=== PATIENT | male | born 1980 | race African-American/Black ===

== ENCOUNTER 2018-08-10 07:50 | Emergency (ER) | payer SELFPAY ==
[~2018-08-10] VITALS: Ht 175.3 cm; Wt 85.7 kg
[2018-08-10] MEDS ORDERED: BACTRIM DOUBLE S1 E1 ORAL (07:59)
[2018-08-10] MEDS ORDERED: NEURONTIN300 MG ORAL (07:59)
[2018-08-10] MEDS ORDERED: NORVASC10 MG ORAL (07:59)
--- NOTE | 2018-08-10 08:01 | NUR ---
ED Nurse Note: patient walked in from home c/o left eye swelling, appears to be sty, started last Thursday. He went to see a doctor for this and taking Bactrim for three days but with no improvement.
[2018-08-10 08:12] VITALS: BP 130/89
[2018-08-10] MEDS ORDERED: ERYTHROMYCIN3.5 GM LEFT EYE (08:46)
[2018-08-10] MEDS ORDERED: CEPHALEXIN500 MG ORAL (08:46)
[2018-08-10 08:52] VITALS: BP 130/89
--- NOTE | 2018-08-10 08:53 | NUR ---
ED Nurse Note: pt was cleared for discharge by ERMD, discharge instrcution/paper/prescription explained and patient verbalized understanding. ID band removed. pt aox4. pt able to walk with steady gait. pt left the ed with all belongings.
--- NOTE | 2018-08-10 15:49 | Emergency Room Report ---
History of Present Illness General Chief Complaint: Skin Rash/Abscess Source: Patient Present Illness HPI Patient presents emergency department today complaining of a sty on the left eye. Patient states that he was diagnosed with a sty couple days ago. He has been taking Bactrim orally. However he was not given any topical antibiotics. He denies any fever chest pain shortness of breath. He states that the eyelid does appear to be more swollen. No other complaints are noted. Symptoms noted to be moderate. No other modifying factors. No other associated signs and symptoms. No other complaints were noted. Allergies: Coded Allergies: TRAMADOL (Verified Allergy, Unknown, 08/10/18) Patient History Past Medical History: HTN Past Surgical History: none Pertinent Family History: none Social History: Denies: smoking, alcohol use, drug use Reviewed Nursing Documentation: PMH: Agreed; PSxH: Agreed Nursing Documentation-PMH Past Medical History: No History, Except For Hx Hypertension: Yes Review of Systems All Other Systems: negative except mentioned in HPI Physical Exam Vital Signs Date Time Temp Pulse Resp B/P (MAP) Pulse Ox O2 Delivery O2 Flow Rate FiO2 08/10/18 07:53 98.4 82 16 130/89 94 Room Air Sp02 EP Interpretation: reviewed, normal General Appearance: normal inspection, well appearing, no apparent distress, alert Head: atraumatic Eyes: left eye PERRL, left eye other - Sty, Eyelid swell ENT: normal ENT inspection, hearing grossly normal, normal voice Neck: normal inspection, full range of motion, supple, no bony tend Respiratory: normal inspection, lungs clear, normal breath sounds, no respiratory distress, no retraction, no wheezing Cardiovascular #1: regular rate, rhythm, no edema Gastrointestinal: normal inspection, normal bowel sounds, non tender, soft, no guarding, no hernia Genitourinary: no CVA tenderness Musculoskeletal: normal inspection, back normal, normal range of motion Neurologic: normal inspection, alert, responsive, speech normal Psychiatric: normal inspection, judgement/insight normal, mood/affect normal Skin: normal inspection, normal color, no rash Medical Decision Making Diagnostic Impression: Primary Impression: Stye external ER Course Patient presents emergency department today complaining of a stye in the left eye. Differential considerations include cellulitis, stye, abscess just name a few. Patient's exam is consistent with slight and mild cellulitis of the eyelid. I felt the patient could be treated with topical ointment erythromycin. Patient was also given additional Keflex. Recommend outpatient follow-up with ophthalmology.Patient is advised to follow up with primary doctor in 2-3 days and return the emergency room for any worsening symptoms and as needed. Last Vital Signs Date Time Temp Pulse Resp B/P (MAP) Pulse Ox O2 Delivery O2 Flow Rate FiO2 08/10/18 08:52 98.4 82 18 130/89 98 Room Air Status: improved Disposition: HOME, SELF-CARE Condition: Stable Scripts Erythromycin Base (ERYTHROMYCIN*) 3.5 Gm Oint...g. 1 APPLIC LEFT EYE QID for 7 Days, #3.5 GM 0 Refills Prov: Michael Baird MD 08/10/18 Cephalexin* (KEFLEX*) 500 Mg Capsule 500 MG ORAL EVERY 6 HOURS for 7 Days, CAP Prov: Michael Baird MD 08/10/18 Referrals: NON PHYSICIAN (PCP) Departure Forms: Return to School, Return to School On: Aug 16, 2018 School Release Restrictions: None Return to Work Return to Work Date: Aug 16, 2018 Patient Instructions: Michael Cruz MD Aug 10, 2018 15:49
== END 2018-08-10 08:54 | disposition home or self-care (01) ==
LOC: EMR 08:45
DX: H00.016 Hordeolum externum left eye, unspecified eyelid (principal); I10 Essential (primary) hypertension
CPT/HCPCS: 99282

== ENCOUNTER 2019-01-08 13:11 | Emergency (ER) | payer MEDICAID, OTHER ==
[~2019-01-08] VITALS: Ht 176.5 cm; Wt 86.6 kg
[~2019-01-08 13:11] MED LIST: BACTRIM DOUBLE S1 E1 ORAL; CEPHALEXIN500 MG ORAL; ERYTHROMYCIN3.5 GM LEFT EYE; NEURONTIN300 MG ORAL; NORVASC10 MG ORAL
--- NOTE | 2019-01-08 13:23 | NUR ---
ED Nurse Note: PT WALKED IN TO ER TODAY FROM HOME. AOX4. PT C/O LLQ ABDOMINAL PAIN, 3/10 AT REST X 2 DAYS AGO. PT STATES HE NOTICED A "LUMP" NEAR POSTERIOR SCROTAL SAC X YESTERDAY. PT DENIES NAUSEA, VOMITING, OR DIARRHEA. ACTIVE BOWEL SOUNDS IN ALL QUADRANTS. ABDOMEN NONDISTENDED AND NONTENDER TO PALPATION. LAST BM X 2 DAYS AGO WHICH PT STATES WAS FORMED.
[2019-01-08 13:25] VITALS: BP 136/92
[2019-01-08] MEDS ORDERED: Isovue-300 100ml vial INJ PRN (13:45)
--- NOTE | 2019-01-08 13:45 | Emergency Room Report ---
History of Present Illness General Chief Complaint: Abdominal Pain Source: Patient (KoryLeandro PANG) Present Illness HPI Patient presents with complaints of pain and discomfort to the left lower inguinal groin pain Patient reports that on he started having some discomfort today during training he Again started feeling heaviness with standing or movement Denies any chest pain denies any vomiting patient reports that he was not able to have a full bowel movement this morning However denies any constipation Denies any rash Patient points to the lower aspect of the scrotal area with radiation down towards the rectal region (Leandro Horn DO) Allergies: Coded Allergies: TRAMADOL (Verified Allergy, Unknown, 08/10/18) Patient History Past Medical History: see triage record Pertinent Family History: none Reviewed Nursing Documentation: PMH: Agreed; PSxH: Agreed (Leandro Horn DO) Nursing Documentation-PMH Past Medical History: No History, Except For Hx Hypertension: Yes (Leandro Horn DO) Review of Systems All Other Systems: negative except mentioned in HPI (Leandro Horn DO) Physical Exam Vital Signs Date Time Temp Pulse Resp B/P (MAP) Pulse Ox O2 Delivery O2 Flow Rate FiO2 01/08/19 13:16 98.4 92 18 140/96 (111) 96 Room Air Sp02 EP Interpretation: reviewed, normal General Appearance: well appearing, no apparent distress Head: normocephalic, atraumatic Eyes: bilateral eye PERRL, bilateral eye EOMI ENT: normal pharynx Neck: supple Respiratory: lungs clear, no retraction, no accessory muscle use Cardiovascular #1: regular rate, rhythm Gastrointestinal: non tender, soft Rectal: other - There is a fluctuance palpable area just at the base of the left lower scrotal region the area of fullness appears to track towards the region above the rectal area, no obvious open fissures Musculoskeletal: back normal Neurologic: alert, oriented x3 Skin: other - As above Lymphatic: no adenopathy (Leandro Horn DO) Medical Decision Making Diagnostic Impression: Primary Impression: Perineal abscess, superficial ER Course Given the above history exam multiple differentials and consideration including but not limited to Folliculitis, perirectal abscess Patient's testicular exam is benign, the area in question appears to be below the scrotal area and not involving the scrotum CT imaging is obtained (Leandro Horn DO) ER Course Patient was endorsed to me after increased discomfort to his left perineal area between his penis and anus. Differential diagnosis include was not limited to abscess, cyst among others. CT imaging read by radiology showed cystic area fluid-filled area consistent with a cyst or abscess. Patient was offered needle aspiration incision and drainage. Patient declined incision at this time. Patient was advised to have the area rechecked in 2 days. Patient was advised to follow-up with surgery for recheck Labs Test 01/08/19 13:30 01/08/19 13:51 White Blood Count 8.0 K/UL (4.8-10.8) Red Blood Count 5.13 M/UL (4.70-6.10) Hemoglobin 12.3 G/DL (14.2-18.0) Hematocrit 39.5 % (42.0-52.0) Mean Corpuscular Volume 77 FL (80-99) Mean Corpuscular Hemoglobin 24.0 PG (27.0-31.0) Mean Corpuscular Hemoglobin Concent 31.1 G/DL (32.0-36.0) Red Cell Distribution Width 12.5 % (11.6-14.8) Platelet Count 298 K/UL (150-450) Mean Platelet Volume 5.5 FL (6.5-10.1) Neutrophils (%) (Auto) 49.4 % (45.0-75.0) Lymphocytes (%) (Auto) 35.7 % (20.0-45.0) Monocytes (%) (Auto) 11.8 % (1.0-10.0) Eosinophils (%) (Auto) 2.2 % (0.0-3.0) Basophils (%) (Auto) 0.8 % (0.0-2.0) Sodium Level 140 MMOL/L (136-145) Potassium Level 4.1 MMOL/L (3.5-5.1) Chloride Level 104 MMOL/L (98-107) Carbon Dioxide Level 28 MMOL/L (21-32) Anion Gap 8 mmol/L (5-15) Blood Urea Nitrogen 11 mg/dL (7-18) Creatinine 1.0 MG/DL (0.55-1.30) Estimat Glomerular Filtration Rate > 60 mL/min (>60) Glucose Level 90 MG/DL (74-106) Calcium Level 9.4 MG/DL (8.5-10.1) Total Bilirubin 0.5 MG/DL (0.2-1.0) Aspartate Amino Transf (AST/SGOT) 17 U/L (15-37) Alanine Aminotransferase (ALT/SGPT) 23 U/L (12-78) Alkaline Phosphatase 84 U/L (46-116) Total Protein 7.5 G/DL (6.4-8.2) Albumin 4.3 G/DL (3.4-5.0) Globulin 3.2 g/dL Albumin/Globulin Ratio 1.3 (1.0-2.7) Lipase 63 U/L (73-393) Urine Color Yellow Urine Appearance Clear Urine pH 6 (4.5-8.0) Urine Specific [place] 1.015 (1.005-1.035) Urine Protein Negative (NEGATIVE) Urine Glucose (UA) Negative (NEGATIVE) Urine Ketones 1+ (NEGATIVE) Urine Blood Negative (NEGATIVE) Urine Nitrite Negative (NEGATIVE) Urine Bilirubin Negative (NEGATIVE) Urine Urobilinogen 4 MG/DL (0.0-1.0) Urine Leukocyte Esterase 1+ (NEGATIVE) Urine RBC 0 /HPF (0 - 0) Urine WBC 0-2 /HPF (0 - 0) Urine Squamous Epithelial Cells Occasional /LPF Urine Bacteria Occasional /HPF (NONE) Urine Mucus Few /LPF (NONE/OCC) (Casimiro Alberts MD) Last Vital Signs Date Time Temp Pulse Resp B/P (MAP) Pulse Ox O2 Delivery O2 Flow Rate FiO2 01/08/19 13:25 86 16 Room Air 01/08/19 13:25 98.2 136/92 98 (Leandro Horn DO) Status: improved (Casimiro Alberts MD) Disposition: HOME, SELF-CARE Condition: Stable Scripts Trimethoprim/Sulfamethoxazole 160/800* (BACTRIM DS TABLET*) 1 Each Tablet 1 TAB ORAL Q12H, #14 TAB 0 Refills Prov: Casimiro Alberts MD 01/08/19 Cephalexin* (KEFLEX*) 500 Mg Capsule 500 MG ORAL EVERY 6 HOURS, #28 CAP Prov: Casimiro Alberts MD 01/08/19 Leandro Horn DO Jan 08, 2019 13:45 Casimiro Alberts MD Jan 08, 2019 16:47
[2019-01-08 14:02] LABS: APPEARANCE,URINE CLEAR; BILIRUBIN, URINE NEGATIVE (NEGATIVE); GLUCOSE, URINE (UA) NEGATIVE (NEGATIVE); KETONES,URINE 1+ (NEGATIVE); LEUKOCYTE ESTERASE ,URINE 1+ (NEGATIVE); NITRITE,URINE NEGATIVE (NEGATIVE); PH,URINE 6 (4.5-8.0); PROTEIN,URINE NEGATIVE (NEGATIVE); UROBILINOGEN,URINE 4 MG/DL (0.0-1.0)
[2019-01-08 14:03] LABS: BASOPHILS % (AUTO) 0.8 % (0.0-2.0); EOSINOPHILS % (AUTO) 2.2 % (0.0-3.0); HEMATOCRIT 39.5 % (42.0-52.0); HEMOGLOBIN 12.3 G/DL (14.2-18.0); LYMPHOCYTES % (AUTO) 35.7 % (20.0-45.0); MEAN CORPUSCULAR VOLUME 77 FL (80-99); MONOCYTES % (AUTO) 11.8 % (1.0-10.0); NEUTROPHILS % (AUTO) 49.4 % (45.0-75.0); PLATELET COUNT 298 K/UL (150-450); RED BLOOD COUNT 5.13 M/UL (4.70-6.10); RED CELL DISTRIBUTION WIDTH 12.5 % (11.6-14.8)
[2019-01-08 14:13] LABS: COLOR,URINE YELLOW
[2019-01-08 14:17] LABS: ANION GAP 8 mmol/L (5-15); BLOOD UREA NITROGEN 11 mg/dL (7-18); CALCIUM 9.4 MG/DL (8.5-10.1); CARBON DIOXIDE 28 MMOL/L (21-32); CHLORIDE 104 MMOL/L (98-107); POTASSIUM 4.1 MMOL/L (3.5-5.1); SODIUM 140 MMOL/L (136-145)
[2019-01-08 14:21] LABS: ALANINE AMINOTRANSFERASE 23 U/L (12-78); ALBUMIN 4.3 G/DL (3.4-5.0); ALBUMIN/GLOBULIN RATIO 1.3 (1.0-2.7); ALKALINE PHOSPHATASE 84 U/L (46-116); ASPARTATE AMINO TRANSFERASE 17 U/L (15-37); BILIRUBIN,TOTAL 0.5 MG/DL (0.2-1.0)
--- NOTE | 2019-01-08 14:47 | NUR ---
ED Nurse Note: PT TO CT VIA WHEELCHAIR.
--- NOTE | 2019-01-08 14:59 | NUR ---
ED Nurse Note: PT BACK FROM CT.
--- NOTE | 2019-01-08 15:43 | Diagnostic Imaging Report ---
ADDENDUM - Added by Moises Wallace M.D. on 01/08/2019 3:55 PM (-07:00) ADDITIONAL FINDINGS: Small left perineal abscess measuring approximately 0.9 x 1.6 x 1.4 cm. EXAM: CT Abdomen and Pelvis With Intravenous Contrast CLINICAL HISTORY: PAIN TECHNIQUE: Axial computed tomography images of the abdomen and pelvis with intravenous contrast. CTDI is 13.45 mGy and DLP is 776.52 mGy-cm. One or more of the following dose reduction techniques were used: automated exposure control, adjustment of the mA and/or kV according to patient size, use of iterative reconstruction technique. COMPARISON: None FINDINGS: Liver: Normal. No focal lesion. Spleen: Normal. No focal lesion. Gallbladder: Normal. No stones or biliary dilatation. Pancreas: Normal. No acute inflammation. No mass. Adrenal glands: Normal. No mass. Kidneys: Normal. No hydronephrosis or stone. No mass. Bowel: Normal appendix. Fluid and gas-filled small bowel loops are nonspecific but could represent enteritis or ileus in the appropriate clinical setting. No bowel obstruction or inflammation. Urinary bladder: Normal. No wall thickening or mass. Reproductive organs: Normal. Muscles: No mass. Subcutaneous tissues: Normal. Peritoneal space: Normal. No free fluid. Lymph nodes: Nonspecific mildly prominent inguinal lymph nodes. Vessels: Minimal atherosclerotic calcification. No aneurysm or dissection. Bones: No acute fracture. Probable small bone islands in the pelvic bones. Lung bases: No acute disease. IMPRESSION: Fluid and gas-filled small bowel loops are nonspecific but could represent enteritis or ileus in the appropriate clinical setting. No other acute abnormality in the abdomen or pelvis. <MYCVCSECTION> Critical Value Communications 01/08/19 15:53 Call From Ann Alberts MD on 01/08 15:53 (-07:00)
[2019-01-08] MEDS ORDERED: Lidocaine 1% 10mg/ml/EPI 0.01mg/ml 20ml INJ ONE (16:30)
[2019-01-08] MEDS ORDERED: CEPHALEXIN500 MG ORAL (16:39)
[2019-01-08] MEDS ORDERED: BACTRIM DS TAB1 EAC1 ORAL (16:39)
--- NOTE | 2019-01-08 16:56 | NUR ---
ED Nurse Note: PT LAYING PEACEFULLY IN BED IN NAD. AOX4. PRESCRIPTIONS AND DISCHARGE PAPERWORK EXPLAINED TO PT. PT VERBALIZES UNDERSTANDING AND ALL QUESTIONS ANSWERED. PRESCRIPTIONS AND DISCHARGE PAPERWORK GIVEN TO PT, IV AND ID WRISTBAND REMOVED. PT WALKED OUT OF ER WITH STEADY GAIT AND ALL BELONGINGS.
[2019-01-08 16:58] VITALS: BP 132/86
== END 2019-01-08 16:59 | disposition home or self-care (01) ==
LOC: EMR 13:52
DX: L02.215 Cutaneous abscess of perineum (principal); I10 Essential (primary) hypertension; Z88.6 Allergy status to analgesic agent
CPT/HCPCS: 36415; 74177; 80053; 81003; 83690; 85025; 87040; 96360; 99284; Q9967